=== PATIENT | female | born 1960 | race African-American/Black ===

== ENCOUNTER 2019-06-22 15:29 | Emergency (ER) | payer BC, OTHER, SELFPAY ==
[2019-06-22 15:36] VITALS: BP 156/97
--- NOTE | 2019-06-22 15:39 | Event Note ---
ED Screening Note Date of service: 06/22/19 Time: 15:35 ED Screening Note: 58 y of presents to ED with left sided low back pain denies f/injuries This initial as fellow clinical providers in the ED. Further treatment and workup at subsequent clinical providers discretion. Patient/guardian urged not to elope from the ED as their condition may be serious if not clinically assessed and managed. Initial orders include: ua
[2019-06-22] MEDS ORDERED: TORADOL IM ONE (16:03)
--- NOTE | 2019-06-22 16:22 | Emergency Department Report ---
ED Back Pain/Injury HPI - General Chief Complaint: Back Pain/Injury Stated Complaint: LFT LOWER BACK PAIN Time Seen by Provider: 06/22/19 15:34 Source: patient Limitations: No Limitations - History of Present Illness Initial Comments: Patient is a 58-year-old female presents the emergency room with complaints of left lower back pain that began a week ago. she states the pain radiates to her left gluteus, left hip, down the left leg. She denies any fall or injury. she denies ever having a pain like this before. Patient denies any vomiting, diarrhea, fever, unexplained weight loss, night sweats, numbness, weakness, bowel or bladder incontinence, abdominal pain. PMHx HTN. pt denies any allergies to meds. pt states she did drive to the emergency department today. - Related Data Home Medications Medication Instructions Recorded Confirmed Last Taken Aspirin [Aspirin BABY CHEW TAB] 1 tab PO DAILY 01/12/14 01/12/14 01/15/14 06:00 Lovastatin [Altoprev] 40 mg PO DAILY 01/12/14 01/12/14 01/14/14 Metoprolol [Lopressor TAB] 1 tab PO DAILY 01/12/14 01/12/14 01/14/14 Pantoprazole [Protonix TAB] 1 tab PO DAILY 01/12/14 01/12/14 01/14/14 Potassium Chloride [Klor-Con 10] 20 meq PO DAILY 01/12/14 01/12/14 01/14/14 hydroCHLOROthiazide 1 tab PO DAILY 01/12/14 01/12/14 01/15/14 06:00 [Hydrochlorothiazide] Previous Rx's Medication Instructions Recorded Last Taken Type Cyclobenzaprine [Flexeril] 10 mg PO QHS PRN #10 tablet 06/22/19 Unknown Rx Ibuprofen [Motrin 800 MG tab] 800 mg PO Q8HR PRN #15 tablet 06/22/19 Unknown Rx predniSONE [Deltasone] 40 mg PO QDAY 5 Days #10 tab 06/22/19 Unknown Rx Allergies Allergy/AdvReac Type Severity Reaction Status Date / Time No Known Allergies Allergy Verified 01/12/14 15:49 ED Review of Systems ROS: Stated complaint: LFT LOWER BACK PAIN Other details as noted in HPI Comment: All other systems reviewed and negative ED Past Medical Hx - Past Medical History Previous Medical History?: Yes Hx Hypertension: Yes (did not take metroprolol) Hx Deep Vein Thrombosis: Yes (LEFT LEG 3 YRS AGO) Hx GERD: Yes Hx Liver Disease: No Hx Renal Disease: No Hx Asthma: Yes (hasn't used inhaler for years) - Social History Smoking Status: Never Smoker Substance Use Type: Alcohol - Medications Home Medications: Home Medications Medication Instructions Recorded Confirmed Last Taken Type Aspirin [Aspirin BABY CHEW TAB] 1 tab PO DAILY 01/12/14 01/12/14 01/15/14 06:00 History Lovastatin [Altoprev] 40 mg PO DAILY 01/12/14 01/12/14 01/14/14 History Metoprolol [Lopressor TAB] 1 tab PO DAILY 01/12/14 01/12/14 01/14/14 History Pantoprazole [Protonix TAB] 1 tab PO DAILY 01/12/14 01/12/14 01/14/14 History Potassium Chloride [Klor-Con 10] 20 meq PO DAILY 01/12/14 01/12/14 01/14/14 History hydroCHLOROthiazide 1 tab PO DAILY 01/12/14 01/12/14 01/15/14 06:00 History [Hydrochlorothiazide] Cyclobenzaprine [Flexeril] 10 mg PO QHS PRN #10 tablet 06/22/19 Unknown Rx Ibuprofen [Motrin 800 MG tab] 800 mg PO Q8HR PRN #15 tablet 06/22/19 Unknown Rx predniSONE [Deltasone] 40 mg PO QDAY 5 Days #10 tab 06/22/19 Unknown Rx ED Physical Exam - General Limitations: No Limitations General appearance: alert, in no apparent distress - Head Head exam: Present: atraumatic, normocephalic - Eye Eye exam: Present: normal appearance - ENT ENT exam: Present: mucous membranes moist - Neck Neck exam: Present: normal inspection, full ROM. Absent: tenderness - Respiratory Respiratory exam: Present: normal lung sounds bilaterally. Absent: respiratory distress, wheezes, rales, rhonchi, stridor, chest wall tenderness, accessory muscle use, decreased breath sounds, prolonged expiratory - Cardiovascular Cardiovascular Exam: Present: regular rate, normal rhythm, normal heart sounds. Absent: systolic murmur, diastolic murmur, rubs, gallop - Extremities Exam Extremities exam: Present: other (TTP over the left gluteus and left hip, FROM of the LLE, 2+ distal pulses, sensation intact ) - Back Exam Back exam: Present: normal inspection, full ROM, paraspinal tenderness (left sided L-spine paraspinal TTP, no midline C-spine, T-spine, or L-spine tenderness, no step offs, no deformities ). Absent: vertebral tenderness - Neurological Exam Neurological exam: Present: alert, oriented X3 - Psychiatric Psychiatric exam: Present: normal affect, normal mood - Skin Skin exam: Present: warm, dry, intact ED Course Vital Signs 06/22/19 06/22/19 06/22/19 15:35 15:56 16:08 Temperature 98.2 F Pulse Rate 73 Respiratory 18 16 17 Rate Blood Pressure 156/97 O2 Sat by Pulse 97 Oximetry ED Medical Decision Making - Radiology Data Radiology results: report reviewed CT LUMBAR SPINE: 06/22/2019 INDICATION / CLINICAL INFORMATION: MAIN: low back pain radiating down left leg NO KNOWN INJURY . COMPARISON: None available. FINDINGS: Unenhanced CT images of the lumbar spine were obtained. Images are evaluated in the axial, coronal, and sagittal plane. There is no evidence of acute abnormality. Vertebral body height is well preserved at all levels. There is a mild left convex scoliosis. Vertebral body alignment is otherwise unremarkable. LEVEL BY LEVEL ANALYSIS: L5-S1: Minimal diffuse disc bulging. L4-5: Mild symmetric diffuse disc bulging. L3-4: Mild symmetric diffuse disc bulging. L2-3: Unremarkable. L1-2: Minimal diffuse disc bulging. PARASPINAL STRUCTURES: Unremarkable. Incidental note is made of a hemangioma in the L3 vertebral body. IMPRESSION: No acute abnormality. No evidence of stenosis or nerve root compression. All CT scans at this location are performed using dose reduction to ALARA by means of automated exposure control. Signer Name: Yg Andersen MD Signed: 06/22/2019 4:56 PM Workstation Name: [id number] Transcribed By: AO Dictated By: Yg Andersen MD Electronically Authenticated By: Yg Andersen MD Signed Date/Time: 06/22/19 4608 - Medical Decision Making Patient is a 58-year-old female presents the emergency room with complaints of left lower back pain that began a week ago. she states the pain radiates to her left gluteus, left hip, down the left leg. She denies any fall or injury. she denies ever having a pain like this before. Patient denies any vomiting, diarrhea, fever, unexplained weight loss, night sweats, numbness, weakness, bowel or bladder incontinence, abdominal pain. PMHx HTN. pt denies any allergies to meds. pt states she did drive to the emergency department today. VSS. on exam: left sided L-spine paraspinal TTP, no midline C-spine, T-spine, or L-spine tenderness, no step offs, no deformities, TTP over the left gluteus and left hip, FROM of the LLE, 2+ distal pulses, sensation intact, no focal neuro deficit. UA within normal limits. CT of the L-spine: No acute abnormality. No evidence of stenosis or nerve root compression, mild bulging of the discs. pts discomfort treated while in the ED. given prescription for prednisone, ibuprofen, and flexeril. advised pt to Please take medication as prescribed. Do not drive or operate machinery while taking muscle relaxer. Follow-up with an orthopedic doctor in the next 2-3 days. Use ice, rest, heating pad, stretching exercises. Return to the emergency room for any new or worsening symptoms. - Differential Diagnosis strain, sprain, UTI, fx, dislocation, spondylolysis, spondylolisthesis Critical care attestation.: If time is entered above; I have spent that time in minutes in the direct care of this critically ill patient, excluding procedure time. ED Disposition Clinical Impression: Bulging lumbar disc Low back pain Qualifiers: Chronicity: acute Back pain laterality: left Sciatica presence: with sciatica Sciatica laterality: sciatica of left side Qualified Code(s): M54.42 - Lumbago with sciatica, left side Disposition: DC-01 TO HOME OR SELFCARE Is pt being admited?: No Does the pt Need Aspirin: No Condition: Stable Instructions: Lumbar Disc Herniation (ED) Additional Instructions: Please take medication as prescribed. Do not drive or operate machinery while taking muscle relaxer. Follow-up with an orthopedic doctor in the next 2-3 days. Use ice, rest, heating pad, stretching exercises. Return to the emergency room for any new or worsening symptoms. Prescriptions: Cyclobenzaprine [Flexeril] 10 mg PO QHS PRN #10 tablet PRN Reason: Muscle Spasm predniSONE [Deltasone] 40 mg PO QDAY 5 Days #10 tab Ibuprofen [Motrin 800 MG tab] 800 mg PO Q8HR PRN #15 tablet PRN Reason: pain Referrals: [facility] [Provider Group] - 2-3 Days Time of Disposition: 17:15 Print Language: BOLIVIAN
--- NOTE | 2019-06-22 17:01 | Cat Scan Report ---
CT LUMBAR SPINE: 06/22/2019 INDICATION / CLINICAL INFORMATION: MAIN: low back pain radiating down left leg NO KNOWN INJURY . COMPARISON: None available. FINDINGS: Unenhanced CT images of the lumbar spine were obtained. Images are evaluated in the axial, coronal, and sagittal plane. There is no evidence of acute abnormality. Vertebral body height is well preserved at all levels. There is a mild left convex scoliosis. Vertebral body alignment is otherwise unremarkable. LEVEL BY LEVEL ANALYSIS: L5-S1: Minimal diffuse disc bulging. L4-5: Mild symmetric diffuse disc bulging. L3-4: Mild symmetric diffuse disc bulging. L2-3: Unremarkable. L1-2: Minimal diffuse disc bulging. PARASPINAL STRUCTURES: Unremarkable. Incidental note is made of a hemangioma in the L3 vertebral body. IMPRESSION: No acute abnormality. No evidence of stenosis or nerve root compression. All CT scans at this location are performed using dose reduction to ALARA by means of automated expos ure control. Signer Name: Yg Andersen MD Signed: 06/22/2019 4:56 PM Workstation Name: [id number]
[2019-06-22 17:13] LABS: Bilirubin,Urine NEG (Negative); Blood,Urine NEG (Negative); Color,Urine Yellow (Yellow); Mucus,Urine FEW /HPF; Protein,Urine <15 mg/dL mg/dL (Negative); Urobilinogen,Urine < 2.0 mg/dL (<2.0)
== END 2019-06-22 17:28 | disposition home or self-care (01) ==
LOC: ED 15:29
DX: M51.9 Unspecified thoracic, thoracolumbar and lumbosacral intervertebral disc disorder (principal); I10 Essential (primary) hypertension; K21.9 Gastro-esophageal reflux disease without esophagitis; J45.909 Unspecified asthma, uncomplicated; Z86.718 Personal history of other venous thrombosis and embolism; Z79.82 Long term (current) use of aspirin
CPT/HCPCS: 72131; 81001; 96372; 99284; J1885